=== PATIENT | female | born 1990 | race Caucasian/White ===

== ENCOUNTER 2017-03-19 12:00 | Emergency (ER) | payer OTHER ==
[2017-03-19 12:05] VITALS: BP 130/78; PULSE 91; RESP 18; TEMP 98.2; O2SAT 98
--- NOTE | 2017-03-19 13:18 | EDPHY ---
H & P Smoking Status: Never smoked Time Seen by Provider: 03/19/17 12:04 HPI/ROS: CHIEF COMPLAINT: Laceration finger HISTORY OF PRESENT ILLNESS: 26-year-old female presents to the emergency department with injury to her left 3rd finger. The patient was at work and accidentally cut his finger with a knife. The incident happened just prior to arrival. She believes her tetanus shot is current. No other injuries. ROS: Denies numbness or tingling in her fingers, retained foreign body or bony injury. (Baylee Arrieta) Past Medical/Surgical History: Negative (Baylee Arrieta) Social History: Single (Baylee Arrieta) Physical Exam: On evaluation, the patient has a very superficial less than 1 cm laceration to the distal, palmar aspect of the left 3rd finger. No active bleeding noted. The laceration does not extend into the D IP joint. No nail involvement noted. The other fingers do not appear injured. No palpable bony tenderness. No evidence of retained foreign body. No signs of infection. (Baylee Arrieta) Constitutional: Initial Vital Signs Temperature (C) 36.8 C 03/19/17 12:03 Heart Rate 91 03/19/17 12:03 Respiratory Rate 18 03/19/17 12:03 Blood Pressure 130/78 H 03/19/17 12:03 O2 Sat (%) 98 03/19/17 12:03 O2 Delivery Mode Room Air Allergies/Adverse Reactions: No Known Allergies Allergy (Unverified 03/19/17 12:03) Home Medications: Medication Instructions Recorded Control 03/19/17 MDM/Departure - MDM ED Course/Re-evaluation: 26-year-old female presents to the emergency department with very superficial laceration to her left 3rd finger. I do not think sutures are indicated in this was discussed with the patient and she verbalized understanding and agreed. Patient was given wound care precautions. (Baylee Arrieta) The patient wasevaluatedand managed by themidlevel provider. Idiscussed the patient's presentation and course with thephysicianassistantor nurse practitionerand agree with theevaluation. My co-signature indicates that I have reviewed this chart and I agree with the findings and plan of care as documented. I am the secondary supervisingphysician. (Ariadna Martines) - Depart Disposition: Home, Routine, Self-Care Clinical Impression: Superficial laceration left middle finge Condition: Good Instructions: Laceration (ED), Acute Wounds (ED) Additional Instructions: Return if you notices any signs or symptoms of infection such as redness, swelling, increased pain, fever, purulent drainage. Keep wound dry, clean and protected. [facility]errals: [facility] [Other] - As per Instructions
== END 2017-03-19 13:26 | disposition home or self-care (01) ==
DX: S61.213A Laceration without foreign body of left middle finger without damage to nail, initial encounter (principal); W26.0XXA Contact with knife, initial encounter; Y92.69 Other specified industrial and construction area as the place of occurrence of the external cause; Y99.0 Civilian activity done for income or pay; Y93.89 Activity, other specified